=== PATIENT | male | born 1945 | race Caucasian/White ===

== ENCOUNTER 2017-03-31 09:51 | Day surgery (SDC) | payer MEDICARE, BC ==
[~2017-03-31 09:51] MED LIST: Lactated Ringers 1,000 ML IV SCH; Sodium Chloride 0.9% 5 ML Syringe FLUSH PRN
[2017-03-31] MEDS ORDERED: Midazolam 1 MG/ML 2 ML SDV ONE (10:14)
[2017-03-31] MEDS ORDERED: Propofol 200 MG/20 ML SDV ONE ×2 (10:14)
[2017-03-31] MEDS ORDERED: Midazolam 1 MG/ML 2 ML SDV IV ONE (11:43)
[2017-03-31] MEDS ORDERED: Propofol 200 MG/20 ML SDV IV ONE (11:43)
--- NOTE | 2017-03-31 12:27 | PCM.OPNOTE ---
- General Post-Op/Procedure Note Date of Surgery/Procedure: 03/31/17 Operative Procedure(s): Colonoscopy with polypectomy at 65 cms. Pre Op Diagnosis: Screening colonoscopy Anesthesia Technique: MAC Primary Surgeon: Zeynep Reece Complications: None Condition: Good Free Text/Narrative:: INFORMED CONSENT: Patient is here today for elective colonoscopy. All aspects of this procedure have been discussed with the patient. All possible complications also, including possibility of perforation, infection, pain, bleeding and unknown complications. In the event of perforation patient may need to have abdominal exploration, colon resection, colostomy and even was discussed. Anesthetic complications were handled by anesthesia department. The patient understands fully well. Patient did not have any further questions for me at the end of my interview. The patient wishes for me to proceed. PREOPERATIVE DIAGNOSIS/INDICATIONS: [screening] POSTOPERATIVE DIAGNOSIS: [one polyp identified at 75cms. Multiple diverticuli seen at the sigmoid colon and scattered throughout the colon including the right colon.] INSTRUMENT USED: Olympus videocolonoscope. ASA CLASSIFICATION: [3] ANESTHESIA: Continuous EKG, oximetry and intermittent blood pressure and respiratory monitoring were performed throughout the procedure. IV Versed and Fentanyl were administered. PROCEDURE PERFORMED: Colonoscopy POSITIONS OF PATIENT: Left lateral. RECTUM: moderately enlarged internal hemorrhoids were identified.. SIGMOID COLON: multiple diverticuli were seen some of them are large. No complication was observed from these diverticuli. DESCENDING COLON: a small polyp was identified at 75 cm. this was removed using the hot biopsy forceps. SPLENIC FLEXURE: Normal. TRANSVERSE COLON: Normal. HEPATIC FLEXURE: Normal. ASCENDING COLON: Normal. CECUM: Normal. ILEOCECAL VALVE: Normal. BIOPSY: None. TOLERANCE: Excellent. COMPLICATIONS: None.
[2017-03-31 14:47] VITALS: BP 128/77
== END 2017-03-31 13:40 | disposition home or self-care (01) ==
LOC: KA.SDS 09:51
PROVIDERS: ATTEND Family Medicine
DX: Z12.11 Encounter for screening for malignant neoplasm of colon (principal); K63.5 Polyp of colon; K57.30 Diverticulosis of large intestine without perforation or abscess without bleeding; K64.8 Other hemorrhoids; I10 Essential (primary) hypertension; K21.9 Gastro-esophageal reflux disease without esophagitis; E78.5 Hyperlipidemia, unspecified; R73.9 Hyperglycemia, unspecified; I50.22 Chronic systolic (congestive) heart failure; I25.10 Atherosclerotic heart disease of native coronary artery without angina pectoris; Z88.0 Allergy status to penicillin; Z79.82 Long term (current) use of aspirin; Z79.899 Other long term (current) drug therapy; Z95.0 Presence of cardiac pacemaker; Z87.891 Personal history of nicotine dependence
CPT/HCPCS: 45384; J2250; J2704; J7120; 00830; 88305